=== PATIENT | male | born 1995 | race Caucasian/White ===

== ENCOUNTER 2019-03-01 22:39 | Emergency (ER) | payer MEDICARE, BC ==
[~2019-03-01] VITALS: Ht 157.5 cm; Wt 103.7 kg
[~2019-03-01 22:39] MED LIST: ASPIRIN E.C. 8181 MG PO; CEFTIN500 MG PO; LEVOTHYROXIN0.025 MG PO; OIL PO; TESSALON PERLE200 MG PO; VASOTEC2.5 M1 PO; VIBRAMYCIN HYC100 MG PO; ZANTAC150 MG PO; [UNRECOGNIZED DRUG - OTHER] PO; levothyroxine PO; vitamin PO
[2019-03-01] MEDS ORDERED: NORCO 325 MG-51 TA1 PO (23:35)
[2019-03-01 23:50] VITALS: BP 132/84
== END 2019-03-01 23:50 | disposition home or self-care (01) ==
LOC: ED 22:39
DX: M25.572 Pain in left ankle and joints of left foot (principal); Q90.9 Down syndrome, unspecified; Z95.2 Presence of prosthetic heart valve; X58.XXXA Exposure to other specified factors, initial encounter